=== PATIENT | male | born 1960 | race Caucasian/White ===

== ENCOUNTER 2020-02-23 11:42 | Inpatient (IN) | payer BC ==
[2020-02-23] VITALS (7 sets, daily range): BP systolic 85–108; BP diastolic 56–73; BMI 21.9
[~2020-02-23] VITALS: Ht 167.6 cm; Wt 62.1 kg
[~2020-02-23 11:42] MED LIST: BACTRIM DS TABL1 TAB PO; COLACE100 MG PO; CRESTOR20 MG PO; DILAUDID2 MG PO; DIOVAN40 MG PO; HYDROCODONE-APA1 TAB PO; INDERAL10 MG PO
[2020-02-23 12:52] LABS: HEMATOCRIT 28.5 % (42.0-54.0); HEMOGLOBIN 9.9 g/dL (13.5-17.5); LYMPHOCYTES 11.3 % (15-50); MCH 36.8 pg (26.0-34.0); MCHC 34.7 g/dL (31.0-37.0); MCV 105.9 fL (80.0-100.0); MEAN PLATELET VOLUME 7.7 fL (7.4-10.4); NEUTROPHILS 84.1 % (40-80); PLATELET COUNT 286 10x3/uL (130-400); RBC 2.69 10x6/uL (4.20-6.10); RDW 12.7 % (11.5-14.5); WBC 12.7 10x3/uL (4.8-10.8)
[2020-02-23 12:55] LABS: CALC OSMOLALITY 282 mosm/kg (275-300); CALCIUM 8.9 mg/dL (8.5-10.1); CARBON DIOXIDE 28.7 mmol/L (21.0-32.0); CHLORIDE - SERUM 102 mmol/L (98-107); CREATININE - SERUM 1.1 mg/dL (0.6-1.3); GLUCOSE 109 mg/dL (74-106); POTASSIUM - SERUM 4.8 mmol/L (3.5-5.1); SODIUM 137 mmol/L (136-145); UREA NITROGEN 36 mg/dL (7-18); eGFR NON AFRICAN AMERICAN 72 mL/min (90-120)
[2020-02-23 13:03] LABS: ALBUMIN 3.4 g/dL (3.4-5.0); ALKALINE PHOSPHATASE 45 U/L (30-120); ALT (SGPT) 19 U/L (10-68); AMYLASE - SERUM 65 U/L (25-115); BILIRUBIN - TOTAL 0.22 mg/dL (0.2-1.3); LIPASE 287 U/L (73-393); PROTEIN - SERUM 6.6 g/dL (6.4-8.2); TROPONIN-I < 0.017 ng/mL (0.000-0.060)
[2020-02-23 13:07] LABS: GLUCOSE NEGATIVE (NEGATIVE); KETONE NEGATIVE (NEGATIVE); NITRITE NEGATIVE (NEGATIVE); SPECIFIC GRAVITY 1.005 (1.005-1.020); UROBILINOGEN NORMAL (NORMAL)
[2020-02-23 13:08] LABS: BILIRUBIN NEGATIVE (NEGATIVE)
[2020-02-23 14:01] LABS: APTT 28.4 SECONDS (22.8-39.4); INR 0.94 (0.85-1.17); PROTIME 12.5 SECONDS (11.6-15.0)
[2020-02-23 17:04] LABS: IRON 38 ug/dl (35-150)
[2020-02-23 17:05] LABS: % SATURATION 11 % (15-55); TOTAL IRON BIND CAPACITY 341 ug/dl (260-445); UNSAT IRON BIND CAPACITY 303 ug/dl (150-375)
[2020-02-23 18:24] LABS: HEMATOCRIT 24.8 % (42.0-54.0); HEMOGLOBIN 8.2 g/dL (13.5-17.5)
--- NOTE | 2020-02-23 20:05 | NUR ---
PT RECIEVED FROM ER, AMBULATED TO BED, A/OX4, LUNGS CLEAR, LEFT FA PIV INTACT WITH PROTONIX GTT AND NS INFUSING, ASSESSMENT COMPLETED, URINAL IN REACH AT BEDSIDE, VITALS STABLE
--- NOTE | 2020-02-23 23:39 | NUR ---
PT RESTING QUIETLY WITH EYES CLOSED, WILL CONT TO MONITOR
[2020-02-24] VITALS (20 sets, daily range): BP systolic 85–112; BP diastolic 49–79; Ht 167.6 cm; Wt 62.1 kg
[2020-02-24 00:24] LABS: HEMATOCRIT 21.6 % (42.0-54.0)
[2020-02-24 00:58] LABS: HEMOGLOBIN 7.3 g/dL (13.5-17.5)
--- NOTE | 2020-02-24 01:15 | NUR ---
PT RESTING QUIETLY WITH NO DISTRESS, URINAL IN REACH
[2020-02-24 02:10] LABS: ALBUMIN 2.7 g/dL (3.4-5.0); ALKALINE PHOSPHATASE 33 U/L (30-120); ALT (SGPT) 16 U/L (10-68); BILIRUBIN - TOTAL 0.33 mg/dL (0.2-1.3); CALCIUM 7.9 mg/dL (8.5-10.1); CARBON DIOXIDE 27.2 mmol/L (21.0-32.0); CHLORIDE - SERUM 108 mmol/L (98-107); GLUCOSE 87 mg/dL (74-106); POTASSIUM - SERUM 4.1 mmol/L (3.5-5.1); PROTEIN - SERUM 5.4 g/dL (6.4-8.2); SODIUM 140 mmol/L (136-145)
[2020-02-24 02:11] LABS: CALC OSMOLALITY 280 mosm/kg (275-300); CREATININE - SERUM 0.8 mg/dL (0.6-1.3); UREA NITROGEN 20 mg/dL (7-18); eGFR NON AFRICAN AMERICAN > 90 mL/min (90-120)
--- NOTE | 2020-02-24 03:15 | NUR ---
TRANSFUSION BEGAN, PT ALERT WITH NOM C/O, VITALS STABLE
--- NOTE | 2020-02-24 05:20 | NUR ---
BEGAN TRANSFUSING 2ND UNIT PRBC, PT ALERT WITH NO C/O, VITALS STABLE
--- NOTE | 2020-02-24 08:10 | NUR ---
0730 REPORT RECIEVED AND CARE ASSUMED OF PATIENT SEE FLOW SHEET FOR SHIFT ASSESMENT UNIT PRBC INFUSING AT THIS TIME.. PT IS AWAKE ALERT AND ORIENTED.. 0800 PRBC THRU INFUSING.. 0810 LAB DRAWN CBC
[2020-02-24 08:59] LABS: BASOPHILS 0.3 % (0-2); EOSINOPHILS 5.9 % (0-7); IMMATURE GRANULOCYTES 0.2 % (0-5); LYMPHOCYTES 22.1 % (15-50); MCH 34.1 pg (26.0-34.0); MCHC 33.1 g/dL (31.0-37.0); MEAN PLATELET VOLUME 8.4 fL (7.4-10.4); MONOCYTES 9.7 % (2-11); NEUTROPHILS 61.8 % (40-80); RBC 2.79 10x6/uL (4.20-6.10); RDW 15.9 % (11.5-14.5)
[2020-02-24 09:10] LABS: HEMATOCRIT 28.7 % (42.0-54.0); HEMOGLOBIN 9.5 g/dL (13.5-17.5); MCV 102.9 fL (80.0-100.0); PLATELET COUNT 191 10x3/uL (130-400); WBC 8.8 10x3/uL (4.8-10.8)
[2020-02-24 11:56] LABS: HEMATOCRIT 27.8 % (42.0-54.0); HEMOGLOBIN 9.2 g/dL (13.5-17.5)
--- NOTE | 2020-02-24 15:34 | NUR ---
1000 DR SYLVESTER IN TO SEE PT.. UPDATE IS GIVEN.. 1100 LAB DRAWWN, NO PRBC NEEDED AT THIS TIME.. 1200 NPO 1430 PRE OP FOR EGD GIVEN PER CALL FROM GI LAB.. 1500 MEDS GIVEN AND 12 LEAD EKG DONE PT WAITING EKG
--- NOTE | 2020-02-24 16:08 | NUR ---
1600 EGD IN PROGRESS AT BEDSIDE.. 1610 EGD COMPLETE ATBEDSIDE SEE ANESTHESIA NOTES
--- NOTE | 2020-02-24 17:23 | NUR ---
1715 DR BENÍTEZ SPEAKING WITH FAMILY AND PATIENT AT THE BEDSIDE...
--- NOTE | 2020-02-24 17:40 | NUR ---
3019 DIETARY HAS BEEN CALLED THREE TIMES AT THIS POINT TO DELIVER A FULL LIQUID DIET TO PATIENT ORDERED FOR DINNER TONIGHT.. MESSAGES LEFT AND CALL HAS NOT BEEN RETURNED PATIENT AND ARE VERY FRUSTRATED PATIENT HAS NOT EATEN ALL DAY BEING NPO FOR PROCEDURE... WILL TRY AGAIN TO CALL...
--- NOTE | 2020-02-24 18:12 | NUR ---
1800 FULL LIQUID DIET SERVED TO PATIENT.. GONE FROM BEDSIDE..
--- NOTE | 2020-02-24 18:39 | NUR ---
1830 LAB DRAWN.. DIET EATEN
[2020-02-24 18:45] LABS: HEMATOCRIT 29.6 % (42.0-54.0); HEMOGLOBIN 9.7 g/dL (13.5-17.5)
--- NOTE | 2020-02-24 19:20 | NUR ---
patient report received from aan. patient has l arm saline lock and l forearm infusing with normal saline and protonix. patient alert and oriented. vss. see assessment. no needs at this time. oxygen removed for comfort. patient was only on 2 l. states no need of oxygen at home. will monitor. door shut for comfort per patient. states he has not been able to sleep due to noise at night. stated if he cant sleep he would like something to make him sleep.
--- NOTE | 2020-02-25 01:00 | NUR ---
second bag of blood hanging
--- NOTE | 2020-02-25 01:04 | NUR ---
patient resting. will continue to monitor
[2020-02-25 01:24] LABS: HEMATOCRIT 26.8 % (42.0-54.0); HEMOGLOBIN 8.9 g/dL (13.5-17.5)
[2020-02-25 03:00] VITALS: BP 94/74
--- NOTE | 2020-02-25 04:41 | NUR ---
linen change provided.
[2020-02-25 05:37] LABS: ALBUMIN 2.8 g/dL (3.4-5.0); ALKALINE PHOSPHATASE 32 U/L (30-120); ALT (SGPT) 22 U/L (10-68); BILIRUBIN - TOTAL 0.49 mg/dL (0.2-1.3); CALC OSMOLALITY 276 mosm/kg (275-300); CALCIUM 8.1 mg/dL (8.5-10.1); CARBON DIOXIDE 27.4 mmol/L (21.0-32.0); CHLORIDE - SERUM 108 mmol/L (98-107); CREATININE - SERUM 0.8 mg/dL (0.6-1.3); GLUCOSE 88 mg/dL (74-106); POTASSIUM - SERUM 3.9 mmol/L (3.5-5.1); PROTEIN - SERUM 5.6 g/dL (6.4-8.2); SODIUM 140 mmol/L (136-145); UREA NITROGEN 9 mg/dL (7-18); eGFR NON AFRICAN AMERICAN > 90 mL/min (90-120)
--- NOTE | 2020-02-25 06:52 | NUR ---
patient resting. stated he had a good rest and we discussed plan of care.
--- NOTE | 2020-02-25 07:05 | NUR ---
TRANSFER ORDER PER VOICE NOTE. REG DIET ORDERED.
[2020-02-25 07:15] VITALS: BP 115/85
[2020-02-25 12:51] LABS: HEMOGLOBIN 9.5 g/dL (13.5-17.5)
--- NOTE | 2020-02-25 13:40 | NUR ---
PT RECEIVED TO ROOM 2206 FROM ICU. AWAKE ALERT AND ORIENTED. ORIENTED TO ROOM BED CONTROLS AND CL. IV TO LEFT FOREARM WITH NS @ 125 ML/HR INFUSING VIA PUMP. SALINE LOC TO LEFT AC, BOTH SITES WITHOUT REDNESS OR EDEMA. DENIES FURTHER NEEDS OR QUESTIONS AT THIS TIME. CL WITHIN REACH. ENCOURAGED TO CALL WITH NEEDS.
[2020-02-25 17:15] VITALS: BP 115/65
[2020-02-25 20:00] VITALS: BP 112/72
[2020-02-26] VITALS: BP 115/71
[2020-02-26 04:00] VITALS: BP 97/58
[2020-02-26 07:05] LABS: BASOPHILS 0.4 % (0-2); EOSINOPHILS 6.8 % (0-7); HEMATOCRIT 28.3 % (42.0-54.0); HEMOGLOBIN 9.5 g/dL (13.5-17.5); IMMATURE GRANULOCYTES 0.1 % (0-5); LYMPHOCYTES 24.8 % (15-50); MCH 34.5 pg (26.0-34.0); MCHC 33.6 g/dL (31.0-37.0); MCV 102.9 fL (80.0-100.0); MEAN PLATELET VOLUME 8.4 fL (7.4-10.4); NEUTROPHILS 58.9 % (40-80); PLATELET COUNT 219 10x3/uL (130-400); RBC 2.75 10x6/uL (4.20-6.10); RDW 15.2 % (11.5-14.5); WBC 7.8 10x3/uL (4.8-10.8)
[2020-02-26 07:12] LABS: ALBUMIN 2.5 g/dL (3.4-5.0); ALKALINE PHOSPHATASE 35 U/L (30-120); ALT (SGPT) 20 U/L (10-68); CALC OSMOLALITY 281 mosm/kg (275-300); CALCIUM 8.2 mg/dL (8.5-10.1); CARBON DIOXIDE 24.1 mmol/L (21.0-32.0); CHLORIDE - SERUM 112 mmol/L (98-107); CREATININE - SERUM 0.7 mg/dL (0.6-1.3); GLUCOSE 88 mg/dL (74-106); POTASSIUM - SERUM 3.6 mmol/L (3.5-5.1); PROTEIN - SERUM 5.4 g/dL (6.4-8.2); SODIUM 143 mmol/L (136-145); UREA NITROGEN 8 mg/dL (7-18); eGFR NON AFRICAN AMERICAN > 90 mL/min (90-120)
--- NOTE | 2020-02-26 07:29 | NUR ---
I have reviewed this patient and I concur with the Shift Assessment completed by the Licensed Practical Nurse today this shift.
--- NOTE | 2020-02-26 08:00 | NUR ---
PATIENT ALERT AND AWAKE. NO NEEDS AT THIS TIME. CL IN REACH. HOPING TO DISCHARGE TODAY. CL IN REACH. WCTM
[2020-02-26 11:05] VITALS: BP 129/81
--- NOTE | 2020-02-26 11:21 | NUR ---
FAMILY IN ROOM. QUESTIONS ANSWERED ABOUT DISCHARGE. VERBALIZED THAT DR BENÍTEZ STATED IN HIS NOTE THAT IF LABS STAYED STABLE POSSIBLE DISCHARGE TODAY. NOW WE NEED TO GET DR SYLVESTER TO AGREE. CL IN REACH. TM
[2020-02-26] MEDS ORDERED: CARAFATE1 G PO (11:26)
[2020-02-26] MEDS ORDERED: PROTONIX40 MG PO (11:27)
--- NOTE | 2020-02-26 13:59 | NUR ---
WORK EXCUSE TIL SUNDAY
== END 2020-02-26 14:46 | disposition home or self-care (01) | DRG 378 ==
LOC: D.ER 11:42 → D.ICU 16:12 → D.MS 02-25 12:56
PROVIDERS: Family Medicine; Internal Medicine Gastroenterology; ADMIT Family Medicine; ATTEND Family Medicine
PROC: 0DB98ZX Excision of Duodenum, Via Natural or Artificial Opening Endoscopic, Diagnostic (ICD-10-PCS; principal; 2020-02-24 15:30)
DX: K26.4 Chronic or unspecified duodenal ulcer with hemorrhage (principal); F10.239 Alcohol dependence with withdrawal, unspecified; K29.71 Gastritis, unspecified, with bleeding; K52.9 Noninfective gastroenteritis and colitis, unspecified; D64.9 Anemia, unspecified; K21.0 Gastro-esophageal reflux disease with esophagitis

== ENCOUNTER 2020-05-31 16:37 | Emergency (ER) | payer BC ==
[~2020-05-31] VITALS: Ht 167.6 cm; Wt 63.5 kg
[~2020-05-31 16:37] MED LIST changes: +CARAFATE1 G PO; +PROTONIX40 MG PO
[2020-05-31 16:42] VITALS: Ht 167.6 cm; Wt 63.5 kg
[2020-05-31 18:08] LABS: BASOPHILS 0.1 % (0-2); HEMATOCRIT 42.6 % (42.0-54.0); HEMOGLOBIN 14.1 g/dL (13.5-17.5); IMMATURE GRANULOCYTES 0.3 % (0-5); LYMPHOCYTES 12.4 % (15-50); MCHC 33.1 g/dL (31.0-37.0); MCV 96.6 fL (80.0-100.0); MEAN PLATELET VOLUME 8.6 fL (7.4-10.4); MONOCYTES 13.3 % (2-11); NEUTROPHILS 72.9 % (40-80); PLATELET COUNT 250 10x3/uL (130-400); RBC 4.41 10x6/uL (4.20-6.10); RDW 15.9 % (11.5-14.5); WBC 15.7 10x3/uL (4.8-10.8)
[2020-05-31 18:18] LABS: CALC OSMOLALITY 271 mosm/kg (275-300); CALCIUM 10.7 mg/dL (8.5-10.1); CARBON DIOXIDE 30.2 mmol/L (21.0-32.0); CHLORIDE - SERUM 101 mmol/L (98-107); GLUCOSE 122 mg/dL (74-106); POTASSIUM - SERUM 4.3 mmol/L (3.5-5.1); SODIUM 135 mmol/L (136-145); UREA NITROGEN 14 mg/dL (7-18); eGFR NON AFRICAN AMERICAN 81 mL/min (90-120)
[2020-05-31 18:28] LABS: ALBUMIN 3.6 g/dL (3.4-5.0); ALKALINE PHOSPHATASE 48 U/L (30-120); ALT (SGPT) 21 U/L (10-68); AMYLASE - SERUM 50 U/L (25-115); BILIRUBIN - TOTAL 0.47 mg/dL (0.2-1.3); LIPASE 139 U/L (73-393); PROTEIN - SERUM 7.9 g/dL (6.4-8.2)
[2020-05-31 18:32] LABS: TROPONIN-I < 0.017 ng/mL (0.000-0.060)
[2020-05-31 21:36] LABS: BILIRUBIN NEGATIVE (NEGATIVE); KETONE MODERATE mg/dL (NEGATIVE); NITRITE NEGATIVE (NEGATIVE); UROBILINOGEN NORMAL mg/dL (< 2)
[2020-05-31] MEDS ORDERED: ULTRAM50 MG PO (22:20)
[2020-05-31] MEDS ORDERED: LOMOTIL 2.5-0.1 EAC1 PO (22:20)
[2020-05-31 22:54] VITALS: BP 139/67
== END 2020-05-31 23:10 | disposition home or self-care (01) ==
LOC: D.ER 16:37
PROVIDERS: Emergency Medicine
DX: K52.9 Noninfective gastroenteritis and colitis, unspecified (principal); I10 Essential (primary) hypertension; Z72.0 Tobacco use; R10.30 Lower abdominal pain, unspecified

== ENCOUNTER 2020-06-06 11:09 | Inpatient (IN) | payer BC ==
[~2020-06-06] VITALS: Ht 167.6 cm; Wt 54.6 kg
[~2020-06-06 11:09] MED LIST changes: +LOMOTIL 2.5-0.1 EAC1 PO; +ULTRAM50 MG PO
[2020-06-06 11:56] VITALS: Ht 167.6 cm; Wt 54.6 kg
[2020-06-06 13:00] LABS: BASOPHILS 0.2 % (0-2); EOSINOPHILS 1.1 % (0-7); HEMATOCRIT 40.6 % (42.0-54.0); HEMOGLOBIN 13.8 g/dL (13.5-17.5); IMMATURE GRANULOCYTES 0.4 % (0-5); LYMPHOCYTES 11.7 % (15-50); MCH 32.4 pg (26.0-34.0); MCV 95.3 fL (80.0-100.0); MEAN PLATELET VOLUME 8.6 fL (7.4-10.4); MONOCYTES 8.7 % (2-11); NEUTROPHILS 77.9 % (40-80); RBC 4.26 10x6/uL (4.20-6.10); RDW 15.6 % (11.5-14.5); WBC 17.6 10x3/uL (4.8-10.8)
[2020-06-06 13:01] LABS: PLATELET COUNT 326 10x3/uL (130-400)
[2020-06-06 13:10] LABS: INR 0.84 (0.85-1.17); PROTIME 11.5 SECONDS (11.6-15.0)
[2020-06-06 13:13] LABS: CALC OSMOLALITY 268 mosm/kg (275-300); CALCIUM 9.5 mg/dL (8.5-10.1); CARBON DIOXIDE 27.1 mmol/L (21.0-32.0); CHLORIDE - SERUM 99 mmol/L (98-107); CREATININE - SERUM 1.1 mg/dL (0.6-1.3); GLUCOSE 105 mg/dL (74-106); POTASSIUM - SERUM 3.8 mmol/L (3.5-5.1); SODIUM 133 mmol/L (136-145); UREA NITROGEN 22 mg/dL (7-18); eGFR NON AFRICAN AMERICAN 72 mL/min (90-120)
[2020-06-06 13:23] LABS: ALBUMIN 3.3 g/dL (3.4-5.0); ALKALINE PHOSPHATASE 51 U/L (30-120); ALT (SGPT) 18 U/L (10-68); AMYLASE - SERUM 40 U/L (25-115); BILIRUBIN - TOTAL 0.27 mg/dL (0.2-1.3); LIPASE 86 U/L (73-393); PROTEIN - SERUM 7.5 g/dL (6.4-8.2)
[2020-06-06 13:24] LABS: TROPONIN-I < 0.017 ng/mL (0.000-0.060)
[2020-06-06 13:38] LABS: APTT 30.4 SECONDS (22.8-39.4)
[2020-06-06 17:33] LABS: HEMATOCRIT 34.8 % (42.0-54.0); HEMOGLOBIN 11.5 g/dL (13.5-17.5)
[2020-06-06 17:36] LABS: CREATINE KINASE 42 UL (21-232)
[2020-06-06 17:37] LABS: TROPONIN-I < 0.017 ng/mL (0.000-0.060)
[2020-06-06 17:51] LABS: % SATURATION 7 % (15-55); IRON 31 ug/dl (35-150); TOTAL IRON BIND CAPACITY 401 ug/dl (260-445); UNSAT IRON BIND CAPACITY 370 ug/dl (150-375)
[2020-06-06 18:30] VITALS: BP 96/62
[2020-06-06 22:15] VITALS: BP 96/63
[2020-06-06 22:22] LABS: HEMATOCRIT 33.1 % (42.0-54.0); HEMOGLOBIN 10.8 g/dL (13.5-17.5)
[2020-06-06 23:40] LABS: CKMB 0.7 U/L (0.0-3.6); CREATINE KINASE 45 UL (21-232); TROPONIN-I < 0.017 ng/mL (0.000-0.060)
[2020-06-07] VITALS (7 sets, daily range): BP systolic 90–124; BP diastolic 44–76
--- NOTE | 2020-06-07 07:02 | NUR ---
PT REPORT FROM JUAN SHANNON
[2020-06-07 07:56] LABS: BASOPHILS 0.4 % (0-2); EOSINOPHILS 2.5 % (0-7); HEMATOCRIT 31.8 % (42.0-54.0); HEMOGLOBIN 10.2 g/dL (13.5-17.5); IMMATURE GRANULOCYTES 0.3 % (0-5); LYMPHOCYTES 20.4 % (15-50); MCH 30.8 pg (26.0-34.0); MCHC 32.1 g/dL (31.0-37.0); MCV 96.1 fL (80.0-100.0); MEAN PLATELET VOLUME 8.6 fL (7.4-10.4); MONOCYTES 11.1 % (2-11); NEUTROPHILS 65.3 % (40-80); PLATELET COUNT 285 10x3/uL (130-400); RDW 15.8 % (11.5-14.5)
[2020-06-07 07:58] LABS: RBC 3.31 10x6/uL (4.20-6.10); WBC 10.6 10x3/uL (4.8-10.8)
[2020-06-07 08:18] LABS: ALKALINE PHOSPHATASE 37 U/L (30-120); ALT (SGPT) 14 U/L (10-68); BILIRUBIN - TOTAL 0.26 mg/dL (0.2-1.3); CARBON DIOXIDE 22.7 mmol/L (21.0-32.0); CHLORIDE - SERUM 105 mmol/L (98-107); CKMB 0.9 U/L (0.0-3.6); CREATINE KINASE 62 UL (21-232); GLUCOSE 75 mg/dL (74-106); MAGNESIUM - SERUM 1.7 mg/dL (1.8-2.4); POTASSIUM - SERUM 3.5 mmol/L (3.5-5.1); SODIUM 135 mmol/L (136-145); TROPONIN-I < 0.017 ng/mL (0.000-0.060)
[2020-06-07 08:19] LABS: ALBUMIN 2.4 g/dL (3.4-5.0); CALC OSMOLALITY 269 mosm/kg (275-300); CREATININE - SERUM 0.8 mg/dL (0.6-1.3); PROTEIN - SERUM 5.6 g/dL (6.4-8.2); UREA NITROGEN 14 mg/dL (7-18); eGFR NON AFRICAN AMERICAN > 90 mL/min (90-120)
[2020-06-07 08:55] LABS: BILIRUBIN NEGATIVE (NEGATIVE); KETONE MODERATE mg/dL (NEGATIVE); NITRITE NEGATIVE (NEGATIVE); UROBILINOGEN NORMAL mg/dL (< 2)
[2020-06-07 08:58] LABS: BACTERIA FEW HPF (NONE SEEN); WHITE CELLS - URINE 0-5 HPF (0-1)
[2020-06-07 09:44] LABS: HEMATOCRIT 30.8 % (42.0-54.0); HEMOGLOBIN 10.1 g/dL (13.5-17.5)
--- NOTE | 2020-06-07 12:10 | NUR ---
KCL RIDER RATE DECREASED DUE TO PT C/O IV SITE BURNING
--- NOTE | 2020-06-07 12:38 | NUR ---
1 ST MAG RIDER COMPLETED AT 1238 2 ND MAG RIDER COMPLETED AT 1344
--- NOTE | 2020-06-07 14:19 | NUR ---
PATIENTS PREOP MEDS GIVEN
--- NOTE | 2020-06-07 14:36 | NUR ---
pt taken to gi lab
--- NOTE | 2020-06-07 14:56 | NUR ---
REPORT CALLED TO CAMILA
[2020-06-07 16:32] LABS: HEMATOCRIT 32.7 % (42.0-54.0); HEMOGLOBIN 10.6 g/dL (13.5-17.5)
--- NOTE | 2020-06-07 21:00 | NUR ---
A&O X 4. SUPINE IN BED. STATES HE HAS 2-3 DRINKS OF WHISKEY BEFORE BED EVERY NIGHT, PRIMARY A SLEEP AID. REQUESTING HE BE PRESCRIBED A SLEEP AID PRIOR TO DISCHARGE TO HELP HIM QUIT DRINKING, BUT TO HELP WITH INSOMNIA. CTM. WILL PASS IN REPORT.
[2020-06-07 22:24] LABS: HEMATOCRIT 29.6 % (42.0-54.0); HEMOGLOBIN 9.6 g/dL (13.5-17.5)
--- NOTE | 2020-06-08 02:24 | NUR ---
I have reviewed this patient and I concur with the Shift Assessment completed by the Licensed Practical Nurse today this shift.
[2020-06-08 04:00] VITALS: BP 119/80
[2020-06-08 05:10] LABS: BASOPHILS 0.3 % (0-2); EOSINOPHILS 2.5 % (0-7); HEMOGLOBIN 9.9 g/dL (13.5-17.5); IMMATURE GRANULOCYTES 0.3 % (0-5); LYMPHOCYTES 23.9 % (15-50); MCH 30.8 pg (26.0-34.0); MCHC 31.9 g/dL (31.0-37.0); MCV 96.6 fL (80.0-100.0); MEAN PLATELET VOLUME 8.3 fL (7.4-10.4); MONOCYTES 10.8 % (2-11); NEUTROPHILS 62.2 % (40-80); PLATELET COUNT 289 10x3/uL (130-400); RBC 3.21 10x6/uL (4.20-6.10); RDW 15.8 % (11.5-14.5); WBC 8.9 10x3/uL (4.8-10.8)
[2020-06-08 05:23] LABS: ALBUMIN 2.4 g/dL (3.4-5.0); ALKALINE PHOSPHATASE 37 U/L (30-120); ALT (SGPT) 16 U/L (10-68); BILIRUBIN - TOTAL 0.14 mg/dL (0.2-1.3); CALC OSMOLALITY 271 mosm/kg (275-300); CALCIUM 7.6 mg/dL (8.5-10.1); CARBON DIOXIDE 21.8 mmol/L (21.0-32.0); CHLORIDE - SERUM 107 mmol/L (98-107); CREATININE - SERUM 0.9 mg/dL (0.6-1.3); GLUCOSE 78 mg/dL (74-106); MAGNESIUM - SERUM 2.1 mg/dL (1.8-2.4); POTASSIUM - SERUM 3.5 mmol/L (3.5-5.1); PROTEIN - SERUM 5.4 g/dL (6.4-8.2); SODIUM 137 mmol/L (136-145); UREA NITROGEN 11 mg/dL (7-18); eGFR NON AFRICAN AMERICAN > 90 mL/min (90-120)
[2020-06-08 07:00] VITALS: BP 145/81
--- NOTE | 2020-06-08 07:32 | NUR ---
PATIENT UP WALKING AROUND IN ROOM. HAS ALREADY DRESSED AND STATED HE IS WAITING TO BE DISCHARGED AND IS LEAVING TODAY WHETER THEY LET HIM OR NOT. EXPLAINED THAT DOCTORS NEED TO MAKE ROUNDS AND THEN HE CAN LEAVE. NO NEEDS VOICED, CONTINUE WITH PLAN OF CARE
[2020-06-08] MEDS ORDERED: PROTONIX40 MG PO (10:29)
[2020-06-08] MEDS ORDERED: CARAFATE1 G PO (10:31)
[2020-06-08] MEDS ORDERED: FLAGYL500 MG PO (10:33)
[2020-06-08 11:00] VITALS: BP 142/78
[2020-06-08] MEDS ORDERED: NICODERM CQ1 EAC3 TOPICAL (12:38)
== END 2020-06-08 16:24 | disposition home or self-care (01) | DRG 378 ==
LOC: D.ER 11:09 → D.MS 16:17 → D.EDHOLD 16:17 → D.MS 06-07 14:49
PROVIDERS: Family Medicine; Internal Medicine Gastroenterology; ADMIT Family Medicine Adult Medicine; ATTEND Family Medicine Adult Medicine
PROC: 0DB98ZX Excision of Duodenum, Via Natural or Artificial Opening Endoscopic, Diagnostic (ICD-10-PCS; principal; 2020-06-07 15:29)
DX: K29.81 Duodenitis with bleeding (principal); F17.203 Nicotine dependence unspecified, with withdrawal; E87.1 Hypo-osmolality and hyponatremia; D53.9 Nutritional anemia, unspecified; D50.9 Iron deficiency anemia, unspecified; I10 Essential (primary) hypertension; F32.9 Major depressive disorder, single episode, unspecified; F10.20 Alcohol dependence, uncomplicated; K21.00 Gastro-esophageal reflux disease with esophagitis, without bleeding; K44.9 Diaphragmatic hernia without obstruction or gangrene; K29.71 Gastritis, unspecified, with bleeding